=== PATIENT | female | born 1995 | race Caucasian/White ===

== ENCOUNTER → 2020-05-31 15:15 | Outpatient (CLI) | payer BC, SELFPAY ==
--- NOTE | ~2020-05-31 | US_ITS ---
EXAMINATION: US pelvic complete w TV DATE: 05/31/2020 15:47 INDICATION: Pelvic pain Comparison:No prior studies for comparison. TECHNIQUE: Multiple transabdominal and endovaginal sonographic images of the pelvis performed. FINDINGS: The uterus measures 7.4 x 3.4 x 4 cm. The endometrial complex measures 13.5 mm. The right ovary measures 3.2 x 2.3 x 2.4 cm and the left ovary measures 2.2 x 1.5 x 1.4 cm. There ar e small follicles in each ovary. There is no free fluid in the pelvis. There are no abnormal masses seen on either side. IMPRESSION: 1. Endometrial thickening measuring 13.5 mm. Reviewed, dictated and finalized at location B.
== END ==
PROVIDERS: PCP Nurse Practitioner Adult Health; Visit Provider Nurse Practitioner Adult Health
DX: R10.2 Pelvic and perineal pain (principal); R93.89 Abnormal findings on diagnostic imaging of other specified body structures
CPT/HCPCS: 76830; 76856

== ENCOUNTER 2020-08-03 07:03 | Outpatient (NON) | payer BC, SELFPAY ==
[2020-08-03 23:37] LABS: SARS-CoV-2 RNA PCR Negative
== END 2020-08-03 07:04 ==
PROVIDERS: PCP Nurse Practitioner Adult Health; Visit Provider Nurse Practitioner Adult Health
DX: R05 Cough (principal); Z20.828 Contact with and (suspected) exposure to other viral communicable diseases
CPT/HCPCS: 87635; C9803; U0003

== ENCOUNTER → 2020-11-22 08:04 | Outpatient (CLI) | payer BC, SELFPAY ==
[2020-11-22 18:59] LABS: SARS-CoV-2 RNA PCR Negative
== END ==
PROVIDERS: PCP Nurse Practitioner Adult Health; Visit Provider Nurse Practitioner Adult Health
DX: Z20.822 Contact with and (suspected) exposure to COVID-19 (principal); R09.81 Nasal congestion
CPT/HCPCS: C9803; U0003; U0005

== ENCOUNTER → 2021-05-21 01:27 | Outpatient (CLI) | payer BC, SELFPAY ==
[2021-05-22 20:44] LABS: SARS-CoV-2 RNA PCR Negative
== END ==
PROVIDERS: PCP Nurse Practitioner Adult Health; Visit Provider Nurse Practitioner Adult Health
DX: Z20.822 Contact with and (suspected) exposure to COVID-19 (principal); R09.81 Nasal congestion
CPT/HCPCS: C9803; U0003; U0005

== ENCOUNTER 2023-03-30 14:52 | Emergency (ER) | payer OTHER, SELFPAY ==
--- NOTE | 2023-03-30 15:22 | ED.URI ---
HPI - URI/Sore Throat General Chief Complaint: Upper Respiratory Infection Stated Complaint: Sore Throat Time Seen by Provider: 03/30/23 15:22 Source: patient Mode of arrival: ambulatory Limitations: no limitations History of Present Illness HPI Narrative: 27-year-old female presents with complaint low-grade fever, sore throat, headache for 2 days. Nasal congestion, cough. Denies nausea vomiting diarrhea. Taking Tylenol and ibuprofen to treat pain. Patient concerned that she has strep throat. All systems reviewed and negative except as noted above. Related Data Home Medications Medication Instructions Recorded Confirmed cetirizine 10 mg tablet (Zyrtec) 10 mg PO DAILY PRN Allergy Symptoms 11/02/22 03/30/23 omeprazole 20 mg capsule,delayed 20 mg PO DAILY 11/02/22 03/30/23 release Allergies Allergy/AdvReac Type Severity Reaction Status Date / Time No Known Allergies Allergy Verified 03/30/23 15:06 Review of Systems Review of Systems: CONSTITUTIONAL: Reports fatigue, fever. Denies chills, or sweats. EYES: Denies visual changes, redness, or discharge. ENT: Denies rhinorrhea, congestion . Reports sore throat. Denies otalgia. CARDIOVASCULAR: Denies chest pain, palpitations, or edema. RESPIRATORY: Denies cough or dyspnea. GASTROINTESTINAL: Denies abdominal pain, nausea, vomiting, or diarrhea. GENITOURINARY: Denies dysuria or hematuria. SKIN: Denies rash or itching. MUSCULOSKELETAL: Denies back pain, joint pain, or myalgia. NEUROLOGIC: Denies headache, numbness, or weakness. PSYCHIATRIC: Denies anxiety or depression. All other systems reviewed are negative, except as documented in HPI. [facility] Past Medical History Medical History (Updated 03/30/23 @ 15:29 by Frances Kamara NP) Anxiety Asthma Surgical History Surgical History (Updated 11/02/22 @ 11:00 by Елена Jeronimo PA-C) History of cholecystectomy 2020 Family History Family History Other Asthma Social History Social History (Updated 11/02/22 @ 09:50 by Rosa Maria Posadas) Smoking status: Never smoker Alcohol intake: never Substance use: never Substance use type: does not use Lack of Transportation: No Lack of Food: Never True Current Housing: I Have Housing Concerned About Future Housing: No Difficulty Paying Gas/Electric Bills: No Difficulty Paying for Meds: No Currently Unemployed: No Education: High School Diploma/GED Difficulty w/ Childcare or Family Care: No Living arrangements: with family Occupation/Education: occupation Additional occupation/education comments: mortgage Gender identity (if verbalized by the patient): Female Sexual Orientation (if Verbalized by the Patient): Straight or Heterosexual Comments At time of signature, agree with nursing past medical, surgical, social and family history. There is no relevant family history pertinent to the presenting complaint. Exam Narrative: GENERAL: This is a well-nourished, well-developed patient, in no apparent distress. HEAD: normocephalic, atraumatic. EYES: PERRL. Sclera clear/white. Vision is grossly intact. EARS: External ears normal, auditory canals clear and without drainage, TMs normal without perforation. Hearing grossly intact. NOSE: External nose normal with no obvious nasal discharge, nares without redness, no rhinorrhea. THROAT: Mucous membranes moist, posterior pharynx clear. NECK: Neck supple, non-tender without lymphadenopathy, masses or thyromegaly. CARDIOVASCULAR: Regular rate and rhythm without murmurs, gallops, or rubs. RESPIRATORY: Clear to auscultation. Breath sounds equal bilaterally. No wheezes, rales, or rhonchi. SKIN: warm, Dry, intact with no suspicious lesions or rash, good texture and turgor. NEURO: awake, alert, and oriented to person, place and time. There were no obvious focal neurologic abnormalities. EXTREMITIES: No joint tenderne
[2023-03-30 15:43] VITALS: BP 125/85; PULSE 92; RESP 20; TEMP 37; O2SAT 99
== END 2023-03-30 15:30 | disposition home or self-care (01) ==
PROVIDERS: Emergency Provider Nurse Practitioner Family; PCP Physician Assistant Medical
DX: J02.9 Acute pharyngitis, unspecified (principal); J45.909 Unspecified asthma, uncomplicated
CPT/HCPCS: 87081; 87880; 99213; G0463

== ENCOUNTER 2025-02-01 10:02 | Outpatient (CLI) | payer OTHER, SELFPAY ==
--- NOTE | ~2025-02-01 | XR_ITS ---
EXAMINATION: XR hysterosalpingogram DATE: 02/01/2025 12:15 INDICATION: Female infertility TECHNIQUE: Multiple fluoroscopic images were obtained during contrast infusion into the endometrial c anal of the uterus by the primary physician. Fluoroscopy exposure time was 0.8 minutes. A total of 6 fluoroscopic images were recorded. Total DAP was 3.82 Gycm^2. FINDINGS: The uterine cavity demonstrates normal morphology. The fallopian tubes are normal in caliber and pat ent bilaterally. There is normal spillage of contrast into the peritoneum on both sides. IMPRESSION: 1. Normal hysterosalpingogram. Reviewed, dictated and finalized at location A.
--- OUTSIDE RECORDS SUMMARY | 2025-02-01 10:15 | XMS_ITS | Clinical Summary ---
Author Organization [facility] Web Performance Address [facility] [facility] [place] [address] Care Team Providers Care Package Wrapper Name Role Phone Unavailable Primary Care Provider Unavailabl e Source Comments [facility],non-owned Affiliates and Associated Physician Practices is amultiple site organization consisting of ambulatory clinics and hospital sitesin [place], [place], [place] and [place]. This disclosure is being madepursuant to the Care Everywhere program and may not contain all information available regarding this patient. Last updated 18.[facility] Allergies No known active allergies Medications * Be aware that medications may not be up to date on this document. Alwaysverify current medications with the patient. 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 Gender Identity Not on file Sexual Orientation Not on file Last Filed Vital Signs Vital Sign Reading Time Taken Comments Blood Pressure 98/62 09/20/2018 6:04 PM DRIVER SUPERVISOR Pulse 91 09/20/2018 6:04 PM DRIVER SUPERVISOR Temperature 37 C (98.6 F) 09/20/2018 6:04 PM DRIVER SUPERVISOR Respiratory Rate 16 09/20/2018 6:04 PM DRIVER SUPERVISOR Oxygen Saturation 98% 09/20/2018 6:04 PM DRIVER SUPERVISOR Inhaled Oxygen Concentration - - Weight 68 kg (150 lb) 09/20/2018 6:04 PM DRIVER SUPERVISOR Height 154.9 cm (5' 1 ) 09/20/2018 6:04 PM DRIVER SUPERVISOR Body Mass Index 28.34 09/20/2018 6:04 PM DRIVER SUPERVISOR Plan of Treatment Health Maintenance Due Date Last Done Comments HIV SCREENING 2008 HEPATITIS C SCREENING 06/15/2011 DTAP/TDAP/TD VACCINES (1 - Tdap) 2012 HEPATITIS B VACCINE (1 of 3 - 19+ 3-dose series) 2012 COVID-19 VACCINE (1 - 2023-2 5 season) 2024 DEPRESSION SCREENING 09/13/2024 INFLUENZA VACCINE (Season Ended) 2025 ZOSTER VACCINE (1 of 2) 2043 HIB VACCINE Aged Out No longer eligi ble based on patient's age to complete this topic HPV VACCINE Aged Out No longer eligi ble based on patient's age to complete this topic MENINGOCOCCAL (Group B) VACC INE SHARED DECISION-MAKING Aged Out No longer eligibl e based on patient's age to complete this topic MENINGOCOCCAL GROUPS A/C/Y/W VACCINE Aged Out No longer eligible b ased on patient's age to complete this topic PNEUMOCOCCAL VACCINE Aged Out No long er eligible based on patient's age to complete this topic Insurance ANTHEM ANTHEM
--- OUTSIDE RECORDS SUMMARY | 2025-02-01 10:15 | XMS_ITS | Patient Health Record ---
Author Organization [facility] [place] ([address]) Address [address] [facility] [address] [place] [address] Care Team Providers Care Tribal Council Member Name Role Phone Yu Dias Primary Care Provider Elizabeth Wright Unavailable [phone] [facility], Provider Unavailable Unavailab le Allergies No Known Allergies Reason For Referral No Information Medications Medication SIG (Take, Route, Frequency, Duration) Notes Start Date End Date Status BREO ELLIPTA 100 mcg-25 mcg/inh 1 puff(s) inhaled once a day for 30 day(s) 05/13/2022 Active FLUTICASONE NASAL 50 mcg/inh 2 spray(s) in each nostril BID for 30 day(s) Active Singulair 10 MG 1 tab(s) orally once a day for 30 day(s) Active Breo Ellipta 100 MCG-25 MCG/INH 1 PUFF(S) INHALED ONCE A DAY for 30 DAY(S) *Please review and pick correct strength-formulat ion from [employer] options. If intended option is not shown, discontinue and re-order from Quick Search* 05/13/2022 Active ZyrTEC Allergy 10 MG 1 tab(s) orally once a day Active LEVOCETIRIZINE DIHYDROCHLORIDE 5 mg 1 tab(s) orally once a day (in the evening) for 30 day(s) 05/13/2022 Active ALBUTEROL (EQV-PROAIR HFA) 90 MCG/INH 2 PUFF(S) INHALED EVERY 6 HOURS *Please review for potential replacement for e-prescription and drug interaction check* Active Omeprazole Magnesium 20 MG 1 tab(s) orally once a day for 14 day(s) Active Levocetirizine Dihydrochloride 5 MG 1 tab(s) orally once a day (in the evening) for 30 day(s) 05/13/2022 Active AirDuo Digihaler 113 MCG-14 MCG/INH 1 INH INHALED 2 TIMES A DAY for 30 DAY(S) *Please review and pick correct strength-formulat ion from [employer] options. If intended option is not shown, discontinue and re-order from Quick Search* 05/20/2022 Active NASAL WASHES N/A DIRECTED INTRANASALLY NEEDED for 30 *Please review for potential replacement for e-prescription and drug interaction check* Active Fluticasone Propionate 50 MCG/ACT 2 spray(s) in each nostril BID for 30 day(s) Active ALBUTEROL (EQV-PROVENTIL HFA) 90 MCG/INH 2 PUFF(S) INHALED Q4-6 HOURS, PRN AND PER THE ASTHMA ACTION PLAN for 30 DAY(S) *Please review for potential replacement for e-prescription and drug interaction check* 05/13/2022 Active AIRDUO DIGIHALER 113 mcg-14 mcg/inh 1 INH inhaled 2 times a day for 30 day(s) 05/20/2022 Active ZYRTEC 10 mg 1 tab(s) orally once a day Active OMEPRAZOLE 20 mg 1 tab(s) orally once a day for 14 day(s) Active SINGULAIR 10 mg 1 tab(s) orally once a day for 30 day(s) Active Immunizations Vaccine Route Administration Date Status Comme nts Influenza Unknown 06/12/2021 Administ[employer] NOC Tdap Unknown 12/28/2015 Administ[employer] Social History Tobacco Use: Social History Observation Description Date Details (start date - stop date) Never Smoker NA - NA Smoking Smart Form: Question Answer Notes Are you a: never smoker Problems Problem Type SNOMED Code ICD Code Onset Dates Problem Status W/U Status Risk Notes Problem Chronic allergic conjunctivitis (80515424) Other chronic allergic conjunctivitis (H10.45) Active confirmed Problem Allergic rhinitis caused by pollen (disorder) (94123912) Allergic rhinitis due to pollen (J30.1) Active confirmed Problem Allergic rhinitis (13130803) Other allergic rhinitis (J30.89) Active confirmed Problem Uncomplicated moderate persistent asthma (040560828) Moderate persistent asthma, uncomplicated (J45.40) Active confirmed Problem Allergic rhinitis caused by pollen (disorder) (08403029) Allergic rhinitis due to pollen (J30.1) Active confirmed Problem Allergic rhiniti s due to animal (cat) (dog) hair and dander (J30.81) Active confirmed Encounters Encounter Location Date Provider Diagnosis [address] [place] [address] 02/26/2024 Provider [facility] Plan Of Treatment No Information Insurance Providers Payer Name Payer Address Payer Phone Subscriber Number Group Number Insured Name Patient Relationship to Insured Coverage Start Date Coverage End Date Benefit AdministrMeican [address] [facility] [place] [address] [id number] Krystina Damon Self - patient is the insured Medical (General) History Medical History History ICD Code Moderate persistent asthma, uncomplicate d J45.40 Allergic rhinitis due to pollen J30.1 Surgical History Surgery Date(Month/Year) cholecystectomy 10/23/2019
--- OUTSIDE RECORDS SUMMARY | 2025-02-01 10:15 | XMS_ITS ---
Author Organization [facility] [place] ([address]) Address [address] [place] [address] Care Team Providers Care Communications Specialist Name Role Phone Yu Dias Primary Care Provider Elizabeth Wright Unavailable [phone] [facility], Provider Unavailable Unavailab le REASON FOR VISIT Multum To Medispan Conversion Encounter Medications Medication SIG (Take, Route, Frequency, Duration) Notes Start Date End Date Status Breo Ellipta 100 MCG-25 MCG/INH 1 PUFF(S) INHALED ONCE A DAY for 30 DAY(S) *Please review and pick correct strength-formulat ion from [employer] options. If intended option is not shown, discontinue and re-order from Quick Search* 05/13/2022 Active Levocetirizine Dihydrochloride 5 MG 1 tab(s) orally once a day (in the evening) for 30 day(s) 05/13/2022 Active NASAL WASHES N/A DIRECTED INTRANASALLY NEEDED [...] e-prescription and drug interaction check* 05/13/2022 Active Singulair 10 MG 1 tab(s) orally once a day for 30 day(s) Active ZyrTEC Allergy 10 MG 1 tab(s) orally once a day Active ALBUTEROL (EQV-PROAIR HFA) 90 MCG/INH 2 PUFF(S) INHALED EVERY 6 HOURS *Please review for potential replacement for e-prescription and drug interaction check* Active Omeprazole Magnesium 20 MG 1 tab(s) orally once a day for 14 day(s) Active AirDuo Digihaler 113 MCG-14 MCG/INH 1 INH INHALED 2 TIMES A DAY for 30 DAY(S) *Please review and pick correct strength-formulat ion from [employer] options. If intended option is not shown, discontinue and re-order from Quick Search* 05/20/2022 Active Encounters Encounter Location Date Provider Diagnosis [address] [place] [address] 02/26/2024 Provider BEKAH-Johanne Plan Of Treatment No Information Progress Notes * Jimmy DAMONOB:[birth year] (29 yo F)Acc No.[id number]:02/26/2024 Patient: Krystina PRADO Provider: Iesha perez Migration :1995 A ge:28 Y S ex:Female Date:02/26/2024 Address:[facility] [address] [facility] Pcp:TANIA Becerril- Subjective: * Chief Complaints: * [address] [facility] [address] [facility] * Medical History: * Medications: T aking Omeprazole Magnesium 20 MG Tablet Delayed Release 1 tab(s) orally once a day , Taking ZyrTEC Allergy 10 MG Tablet 1 tab(s) orally once a day , Taking ALBUTEROL (EQV-PROAIR HFA) 90 MCG/INH AEROSOL 2 PUFF(S) INHALED EVERY 6 HOURS , Notes to Pharmacist: *Please review for potential replacement for e-prescription and drug interaction check*, Taking Singulair 10 MG Tablet 1 tab(s) orally once a day , Taking Breo Ellipta 100 MCG-25 MCG/INH POWDER 1 PUFF(S) INHALED ONCE A DAY , Notes to Pharmacist: *Please review and pick correct strength-formulation from [employer] options. If intended option is not shown, discontinue and re-order from Quick Search*, Taking ALBUTEROL (EQV-PROVENTIL HFA) 90 MCG/INH AEROSOL 2 PUFF(S) INHALED Q4-6 HOURS, PRN AND PER THE ASTHMA ACTION PLAN , Notes to Pharmacist: *Please review for potential replacement for e-prescription and drug interaction check*, Taking NASAL WASHES N/A 1 QUART OF STERILIZED TAP WATER OR DISTILLED WATER, 1 TSP NACL, 1 PINCH OF BAKING SODA DIRECTED INTRANASALLY NEEDED , Notes to Pharmacist: *Please review for potential replacement for e-prescription and drug interaction check*, Taking Fluticasone Propionate 50 MCG/ACT Suspension 2 spray(s) in each nostril BID , Taking Levocetirizine Dihydrochloride 5 MG Tablet 1 tab(s) orally once a day (in the evening) , Taking AirDuo Digihaler 113 MCG-14 MCG/INH POWDER 1 INH INHALED 2 TIMES A DAY , Notes to Pharmacist: *Please review and pick correct strength-formulation from [employer] options. If intended option is not shown, discontinue and re-order from Quick Search* Objective: * Vitals: Assessment: Plan: * Treatment: * Billing Information: * Visit Code: * Procedure Codes: * Electronic signature of Rodger GODFREY-Migration on 02/01/2025 at 10:15 AM CDT Sign off status: Pending * Provider: Iesha perez Migration Date: 02/26/2024 Generated for Nicolasa price/Nina/Zaheer on: 02/01/2025 10:15 AM CDT
[2025-02-01 11:22] LABS: Beta HCG Quantitative < 2.39 mIU/ML
== END 2025-02-01 10:03 | disposition home or self-care (01) ==
LOC: ANHLAB 10:08
PROVIDERS: PCP Nurse Practitioner Family; Visit Provider Obstetrics & Gynecology
DX: N97.9 Female infertility, unspecified (principal)
CPT/HCPCS: 36415; 58340; 74740; 84702; Q9966

== ENCOUNTER 2025-02-19 01:57 | Day surgery (SDC) | payer OTHER, SELFPAY ==
[2025-02-12 09:14] VITALS: BMI 29.1
--- NOTE | 2025-02-12 09:15 | PC.NURSE ---
Report to the Outpatient Waiting Room, entrance under the green pavilion located off [facility], at time 0930_ on date 02/19/25_. Planned Procedure Time: __1130_.? Time changes happen often and if your time is changed the preop area will call you the afternoon before. - You and your visitor will be asked to self-screen and do not enter if you have any COVID symptoms. Please call surgeon if you need to reschedule. - A mask is optional within the hospital at this time. Patients may have clear liquids (water, carbonated beverages, clear teas, apple juice) until 3 hours prior to surgery with a maximum of 20 ounces. - No food from midnight until time of surgery and no smoking, or chewing tobacco (or any form of nicotine). No chewing gum, candy or mints. - Infants may have breast milk until 4 hours before surgery, infant formula 6 hours prior to surgery. - Children will be allowed to drink immediately following surgery.? If applicable, please bring a bottle or sippy cup to assist with drinking. Juice, water, soda, and popsicles are readily available.? For infants on formula, please bring formula the day of surgery.? Pacifiers are allowed. Take only the following medications with a SIP of water on the morning of surgery: ___NONE DO NOT STOP ANY OF YOUR OTHER PRESCRIPTION MEDICATIONS PRIOR TO SURGERY EXCEPT THE FOLLOWING Hold all vitamins and supplements for 3 days per anesthesiologist. Medications to discontinue per physician Date to take last dose Please no make-up, nail ivorian, hairspray, perfume, deodorant, or body powder the day of surgery.? No jewelry (including any body piercings) or valuables the day of surgery, leave them at home.? Please take a shower or bath the night before, or the morning of, surgery with an antibacterial soap.? Wear comfortable, loose fitting clothing.? Children are encouraged to wear pajamas. - Jewelry must be removed prior to entering the operating room.? Rings and piercings that are not removed may be cut off. - The hospital will not accept responsibility for valuables.? - Please leave all valuables, including medications, at home the day of surgery. If you are going home after surgery, a licensed cpr ambulance driver must drive you home.? - NO public transportation without another adult if you receive anesthesia. - We recommend that an adult stay with you for 24 hours following discharge. - We also recommend that you do not drive, make important decision, drink alcoholic beverages, or take any drugs that were not prescribed by your health care provider for at least 24 hours after your discharge time. For Pediatric surgeries, we recommend two adults accompany the child home. Follow any additional instructions given to you from your surgeon. Telephone instructions given to _PATIENT_and asked if any additional questions and then verbalized understanding. Patient advised to call surgeon office or pre surgery nurse liaison [phone] if any additional questions.
--- NOTE | 2025-02-18 11:02 | P.HP_ITS ---
H&P: HPI History of Present Illness Date/Time: 02/18/25 11:02 Chief Complaint: AUB/polyps Narrative: Krystina is a 29yo G0, who presents for scheduled surgery. She reports she is taking control and getting her life back on track; seeing multiple doctors. She has lost about 30lbs, and is on metformin 1000mg BID now. She is sexually active with her and they have not used protection for 8 years and have never conceived. She does report that her cycles are pretty regular, but she has BTB a few days before her real period starts. She had PCOS blood work in 2022; was negative at that time. She denies ever having and pelvic infections, HSG showed patent tubes 01/2025. has not had a SA either. She denies any breast issues. She has a foster son and daughter, but would like to have her own child. On exam, endocervical polyp was noted. GROUP CAPTAIN US was then performed and was also concerned for endometrial polyp measuring 7mm Review of Systems Constitutional: Constitutional: Denies chills, Denies fever(s) and Denies headache(s) Eyes: Eyes: Denies change in vision ENT: Denies dizziness and Denies headache(s) Cardiovascular: Cardiovascular: Denies chest pain and Denies dyspnea Respiratory: Respiratory: Denies cough and Denies dyspnea Gastrointestinal: Gastrointestinal: Denies abdominal pain and Denies change in stool character Genitourinary: Genitourinary: Denies abnormal menses, Reports metrorrhagia, Reports difficulty conceiving, Denies pelvic pain, Denies vaginal discharge, Denies vaginal odor and Denies vaginal pruritus Neurologic: Denies dizziness and Denies headache(s) Psychiatric: Psychiatric: Denies anxiety and Denies depression [facility] Past Medical History Medical History GERD (gastroesophageal reflux disease) Anxiety Asthma Surgical History Surgical History History of cholecystectomy 2020 Family History Family History Other Asthma Social History Social History (Updated 01/09/25 @ 11:04 by Katia Michelle CMA) Smoking status: Never smoker Alcohol intake: never Substance use: never Substance use type: does not use Lack of Transportation: No Lack of Food: Never True Current Housing: Decline to Answer Concerned About Future Housing: Decline to Answer Difficulty Paying Gas/Electric Bills: Decline to Answer Difficulty Paying for Meds: Decline to Answer Currently Unemployed: No Education: Decline to Answer Difficulty w/ Childcare or Family Care: Decline to Answer Living arrangements: with family Additional living arrangements comments: Occupation/Education: occupation Additional occupation/education comments: [employer] Gender identity (if verbalized by the patient): Female Sexual Orientation (if Verbalized by the Patient): Straight or Heterosexual Meds Home Medications and Allergies Home Medications ?Medication ?Instructions ?Recorded ?Confirmed ?Type cetirizine 10 mg tablet (Zyrtec) 10 mg PO DAILY PRN Allergy Symptoms 11/02/22 02/12/25 History omeprazole 20 mg capsule,delayed 20 mg PO DAILY 11/02/22 02/12/25 History release alprazolam 0.25 mg tablet 0.25 mg PO BID PRN anxiety #20 tabs 04/26/24 02/12/25 Rx albuterol sulfate 90 mcg/actuation 1 puff inhalation Q4H PRN 05/12/24 02/12/25 Rx aerosol inhaler shortness of breath or wheezing #8.5 grams metformin 500 mg tablet 1,000 mg (2 x 500 mg) PO BID #360 01/29/25 02/12/25 Rx tabs lisdexamfetamine 30 mg capsule 30 mg PO DAILY #30 caps 02/08/25 02/12/25 Rx (Vyvanse) fluticasone 250 mcg-salmeterol 50 1 inh inhalation BID PRN shortness 02/12/25 History mcg/dose blistr powdr for of breath or wheezing inhalation (Wixela Inhub) mupirocin 2 % topical ointment 1 applic topical BID PRN ACNE 02/12/25 02/12/25 History BREAKOUT gppmtemg-pmwxefunj-flcnyemr 3.5 1 drp EACH EYE Q4H PRN itching 02/12/25 02/12/25 History mg/mL-10,000 unit/mL-0.1% eye drops Allergies Allergy/AdvReac Type Severity Reaction Status Date / Time No Known Allergies Allergy Verified 02/12/25 09:05 Exam Const: General: cooperative, healthy appearing, comfortable and no acute distress Orientation/consciousness: patient oriented x3 Resp: Effort & Inspection: normal respiratory effort Cardio: Rate: regular rate GI: Inspection: normal to inspection GI Palp: No abdominal tenderness and Yes Soft to palpation : Other: deferred to OR Skin: General skin exam: normal color Neuro: General: patient oriented x3 Extrem: General: normal to inspection Psych: Appearance: grossly normal Affect: normal affect Attitude: cooperative Assessment and Plan Assessment and plan (1) Abnormal uterine bleeding: Code(s): N93.9 - Abnormal uterine and vaginal bleeding, unspecified Status: Acute (2) Endocervical polyp: Code(s): N84.1 - Polyp of cervix uteri Status: Acute (3) Endometrial polyp: Code(s): N84.0 - Polyp of corpus uteri Status: Acute Plan - endocervical polyp noted; and concerns for endometrial polyp on GROUP CAPTAIN US - Proceed with hysteroscopy, D&C and polypectomy. - Risks and benefits discussed in detail
--- OUTSIDE RECORDS SUMMARY | 2025-02-19 02:04 | XMS_ITS | Clinical Summary ---
Author Organization [facility] Address [facility] [place] [address] Care Team Providers Care Destination Coordinator Name Role Phone Unavailable Primary Care Provider Unavailabl e Source Comments [facility],non-owned Affiliates and Associated Physician Practices is amultiple site organization consisting of ambulatory clinics and hospital sitesin [place], [place], [place] and [place]. This disclosure is being madepursuant to the Care Everywhere program and may not contain all information available regarding this patient. 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 Gender Identity Not on file Sexual Orientation Not on file Last Filed Vital Signs Vital Sign Reading Time Taken Comments Blood Pressure 98/62 09/20/2018 6:04 PM CRIMINOLOGY PROFESSOR Pulse 91 09/20/2018 6:04 PM CRIMINOLOGY PROFESSOR Temperature 37 C (98.6 F) 09/20/2018 6:04 PM CRIMINOLOGY PROFESSOR Respiratory Rate 16 09/20/2018 6:04 PM CRIMINOLOGY PROFESSOR Oxygen Saturation 98% 09/20/2018 6:04 PM CRIMINOLOGY PROFESSOR Inhaled Oxygen Concentration - - Weight 68 kg (150 lb) 09/20/2018 6:04 PM CRIMINOLOGY PROFESSOR Height 154.9 cm (5' 1) 09/20/2018 6:04 PM CRIMINOLOGY PROFESSOR Body Mass Index 28.34 09/20/2018 6:04 PM CRIMINOLOGY PROFESSOR Plan of Treatment Health Maintenance Due Date [...]
--- OUTSIDE RECORDS SUMMARY | 2025-02-19 02:04 | XMS_ITS ---
Author Organization [facility] ([address]) Address [address] [place] [address] Care Team Providers Care Core Analyst Name Role Phone Yu Dias Primary Care Provider Elizabeth Wright Unavailable [phone] [employer], Provider Unavailable Unavailab le REASON FOR VISIT Multum To Medispan Conversion Encounter Medications Medication SIG (Take, Route, Frequency, Duration) Notes Start Date End Date Status Breo Ellipta 100 MCG-25 MCG/INH 1 PUFF(S) INHALED ONCE A DAY for 30 DAY(S) *Please review and pick correct strength-formulat ion from [employer] options. If intended option is not shown, [...] Active Encounters Encounter Location Date Provider Diagnosis [address] [place] [address] 02/26/2024 Provider BEKAH-Johanne Plan Of Treatment No Information Progress Notes * Jimmy DAMONOB:[birth year] (29 yo F)Acc No.[id number]:02/26/2024 Patient: Krystina PRADO Provider: Iesha perez Migration :1995 A ge:28 Y S ex:Female Date:02/26/2024 Address:[facility] [address] [facility] Pcp:TANIA Becerril- Subjective: * Chief Complaints: * 1 . [facility]. * Medical History: * Medications: [...] *Please review and pick correct strength-formulation from [employer] options. If intended option is not shown, discontinue and re-order from Quick Search* Objective: * Vitals: Assessment: Plan: * Treatment: * Billing Information: * Visit Code: * Procedure Codes: * Electronic signature of Rodger GODFREY-Migration on 02/19/2025 at 02:04 AM CDT Sign off status: Pending * Provider: Iesha perez Migration Date: 02/26/2024 Generated for Nicolasa price/Nina/Zaheer on: 02/19/2025 02:04 AM CDT
--- OUTSIDE RECORDS SUMMARY | 2025-02-19 02:04 | XMS_ITS | Patient Health Record ---
Author Organization [facility] [employer] [place] ([address]) Address [address] [facility] [address] [place] [address] Care Team Providers Care Type Proof Reproducer Name Role Phone Yu Dias Primary Care Provider Elizabeth Wright Unavailable [phone] [employer], Provider Unavailable Unavailab le Allergies No [...] review and pick correct strength-formulat ion from [employer] options. If intended option is not shown, [...] review and pick correct strength-formulat ion from [employer] options. If intended option is not shown, [...] Comme nts Influenza Unknown 06/12/2021 Administered [employer] NOC Tdap Unknown 12/28/2015 Administ[employer] Social History Tobacco Use: Social History Observation Description Date Details (start date - stop date) Never Smoker NA - NA Smoking Smart Form: Question Answer Notes Are you a: never smoker Problems Problem Type SNOMED Code ICD Code Onset Dates Problem Status W/U Status Risk Notes Problem Chronic allergic conjunctivitis (10239746) Other chronic allergic conjunctivitis (H10.45) Active confirmed Problem Allergic rhinitis caused by pollen (disorder) (13819843) Allergic rhinitis due to pollen (J30.1) Active confirmed Problem Allergic rhinitis (98124101) Other allergic rhinitis (J30.89) Active confirmed Problem Uncomplicated moderate persistent asthma (398881726) Moderate persistent asthma, uncomplicated (J45.40) Active confirmed Problem Allergic rhinitis caused by pollen (disorder) (44835324) Allergic rhinitis due to pollen (J30.1) Active confirmed Problem Allergic rhinitis caused by animal hair and dander (987601940533605) Allergic rhinitis due to animal (cat) (dog) hair and dander (J30.81) Active confirmed Encounters Encounter Location Date Provider Diagnosis [facility] [address] [facility] [place] [address] 02/26/2024 Provider [employer]-Migration Plan Of Treatment No Information Insurance Providers Payer Name Payer Address Payer Phone Subscriber Number Group Number Insured Name Patient Relationship to Insured Coverage Start Date Coverage End Date Benefit [facility] [address] [facility] [address] [id number] Krystina Damon Self - patient is the insured Medical (General) History Medical History History ICD Code Moderate persistent asthma, uncomplicate d J45.40 Allergic rhinitis due to pollen J30.1 Surgical History Surgery Date(Month/Year) cholecystectomy 10/23/2019
--- NOTE | 2025-02-19 07:06 | WPDHPUPDATE1 ---
History and Physical Update Update Date/Time: 02/19/25 07:06 History and Physical has been reviewed, including an updated exam of the patient. There are NO changes in the patient's condition. Risks, benefits, and alternatives have been discussed and questions answered. Patient agrees to proceed with hysteroscopy, D&C and polypectomy.
[2025-02-19 09:40] VITALS: BP 117/80; PULSE 88; RESP 16; TEMP 37.2; O2SAT 100
[2025-02-19] MEDS: ACETAMINOPHEN 500 MG TABLET 1000 MG PO (09:40)
[2025-02-19] MEDS: LACTATED RINGERS 1,000 ML 30 ML IV CONT (09:45)
--- NOTE | 2025-02-19 10:01 | P.PNAN_ITS ---
Anes - Initial Pre Proc Eval Procedure: Operation Date: 02/19/25 11:30 Proposed Procedures p Hysteroscopy Dilation and Curettage with Polypectomy - Chiquis Junior MD Date/Time: 02/19/25 10:01 Surgeon: Chiquis Junior MD Pre Op Diagnosis: Abnormal Uterine Bleeding Patient Data Age: 29 Gender: F Height: 1.55 m Weight: 70.4 kg Last Vital Signs Temp 37.2 C 02/19/25 09:40 Pulse 88 02/19/25 09:40 Resp 16 02/19/25 09:40 BP 117/80 02/19/25 09:40 Pulse Ox 100 02/19/25 09:40 O2 Del Method Room Air 02/19/25 09:40 Allergies Allergy/AdvReac Type Severity Reaction Status Date / Time No Known Allergies Allergy Verified 02/12/25 09:05 Home Medications ?Medication ?Instructions ?Recorded ?Confirmed ?Type cetirizine 10 mg tablet (Zyrtec) 10 mg PO DAILY PRN Allergy Symptoms 11/02/22 02/12/25 History omeprazole 20 mg capsule,delayed 20 mg PO DAILY 11/02/22 02/12/25 History release alprazolam 0.25 mg tablet 0.25 mg PO BID PRN anxiety #20 tabs 04/26/24 02/12/25 Rx albuterol sulfate 90 mcg/actuation 1 puff inhalation Q4H PRN 05/12/24 02/12/25 Rx aerosol inhaler shortness of breath or wheezing #8.5 grams metformin 500 mg tablet 1,000 mg (2 x 500 mg) PO BID #360 01/29/25 02/12/25 Rx tabs lisdexamfetamine 30 mg capsule 30 mg PO DAILY #30 caps 02/08/25 02/12/25 Rx (Vyvanse) fluticasone 250 mcg-salmeterol 50 1 inh inhalation BID PRN shortness 02/12/25 02/12/25 History mcg/dose blistr powdr for of breath or wheezing inhalation (Wixela Inhub) mupirocin 2 % topical ointment 1 applic topical BID PRN ACNE 02/12/25 02/12/25 History BREAKOUT hmfpcsre-dwmpgvnga-ejnfnnhs 3.5 1 drp EACH EYE Q4H PRN itching 02/12/25 02/12/25 History mg/mL-10,000 unit/mL-0.1% eye drops Patient hx anesthesia problems: post op nausea/vomiting Family hx anesthesia problems: none Results Review: All pre-operative results and documents have been reviewed as part of the pre- operative evaluation. [facility] Past Medical History Medical History GERD (gastroesophageal reflux disease) Anxiety Asthma Surgical History Surgical History History of cholecystectomy 2020 Family History Family History Other Asthma Social History Social History Smoking status: Never smoker Alcohol intake: never Substance use: never Substance use type: does not use Lack of Transportation: No Lack of Food: Never True Current Housing: Decline to Answer Concerned About Future Housing: Decline to Answer Difficulty Paying Gas/Electric Bills: Decline to Answer Difficulty Paying for Meds: Decline to Answer Currently Unemployed: No Education: Decline to Answer Difficulty w/ Childcare or Family Care: Decline to Answer Living arrangements: with family Additional living arrangements comments: Occupation/Education: occupation Additional occupation/education comments: [employer] Gender identity (if verbalized by the patient): Female Sexual Orientation (if Verbalized by the Patient): Straight or Heterosexual Anes - Eval Final PreProcedure Day of Procedure 02/19/25 10:01 Patient weight: overweight Heart: regular rate and rhythm Lungs: clear to auscultation Airway: Mallampati scale class II Neurological: alert and oriented Last oral intake: >/= 8 hours ASA classification: II Emergent: no Anesthetic plan: proceed Anesthesia type and monitoring: general GIVS and standard monitoring Results Review: All pre-operative results and documents have been reviewed as part of the pre- operative evaluation. Informed Consent: The patient's anesthetic plan and its attendant risks and benefits were discussed with the patient/family/POA. Questions were solicited and answers provided to the satisfaction of the patient/family/POA.
[2025-02-19 10:13] LABS: BEDSIDEPREGUCG Negative (Negative)
[2025-02-19] MEDS: SCOPOLAMINE 1 MG PATCH 1 PATCH TRANSDERM (10:15)
--- NOTE | 2025-02-19 11:30 | S_PTH ---
PATIENT: Krystina Damon LOC: [facility] U#:[id number] AGE/SX: 29/F ROOM: RE02/19/[address]: Chiquis Junior MD : 1995 BED: DIS: 02/19/2025 SPEC #: [id number] RECD: 02/19/25 12:55 STATUS: VIRGEN REQ #: [id number] SHELBI: 02/19/25 11:[address]: Chiquis Junior DEPT: [facility] Surgical RECD BY: Rochelle Barboza ENTERED: 02/19/25 12:56 SP TYPE: Surgical OTHR DR: Soraya Pace, JINNY Tissues: A - Endometrial Bx B - Endometrial Bx Procedures: Hematoxylin and Eosin Stain Gross and Microscopic Level 4
--- NOTE | 2025-02-19 11:32 | W.PM.PROC2 ---
Procedure Note - Detailed Date of Procedure 02/19/25 Pre-op Diagnosis Abnormal Uterine Bleeding Polyps Infertility Post-op Diagnosis Same Procedure Performed Hysteroscopy, endometrial shavings, polypectomy Surgeon Chiquis Junior MD Anesthesia MAC Findings 0.5cm endocervical polyp, otherwise normal cervix. Normal uterus; lining thickened with break down (starting cycle), bilateral tubal ostia visualized. Sample of endometrium obtained from all areas of the uterus. Good hemostasis at end of case. Fluid deficit: 70cc. Description of Procedure Krystina was taken to the operating room where she was placed under sedation without complications. She was then prepped and draped in the usual sterile fashion in the dorsal lithotomy position with her legs in low Jan stirrups. A time-out was performed and no perioperative antibiotics were indicated. A bivalve speculum was placed within the vagina where the cervix was easily identified. The anterior lip of the cervix was grasped with a single-tooth tenaculum. The cervix was then serially dilated to allow for the hysteroscope. The hysteroscope was advanced into the uterine cavity with the above findings noted. Using the [employer] tissue shaver, the endometrial sampling was obtained from all areas of the uterus. The bilateral tubal ostia were visualized; the endometrial cavity was a normal size/shape. As the hysteroscopy was removed from the uterus, the base of the endocervical polyp was identified and removed. The polyp was then sent as a separate sample. Pictures were obtained. Good hemostasis was noted. All instruments were removed from the vagina. Sponge, lap, instrument, and needle counts were correct at the end of the procedure. Patient was awoken from anesthesia and taken to recovery with plans of same-day discharge home. Estimated Blood Loss 10 IV Fluids 900 Pathology Yes (endometrial shavings and endocervical polyp) Complications No immediate complications Condition Stable Disposition Same day [facility] Billing Surgery - Charge Forward: Surgery Billing
[2025-02-19 11:36] VITALS: BP 94/65; PULSE 81; RESP 14; O2SAT 99
[2025-02-19 11:45] VITALS: O2SAT 99
[2025-02-19 12:00] VITALS: BP 106/69; PULSE 72; RESP 14
[2025-02-19 12:30] VITALS: BP 117/79; PULSE 66
== END 2025-02-19 12:56 | disposition home or self-care (01) ==
PROVIDERS: PCP Nurse Practitioner Family; Visit Provider Obstetrics & Gynecology
PROC: 0U5B8ZZ Destruction of Endometrium, Via Natural or Artificial Opening Endoscopic (ICD-10-PCS; CPT 58563; principal; 2025-02-19 11:30)
DX: N93.9 Abnormal uterine and vaginal bleeding, unspecified (principal); N84.1 Polyp of cervix uteri
CPT/HCPCS: 58558; 88305; A9270; J1885; J2003; J2250; J2405; J2704; J3010; J7120